=== PATIENT | female | born 1970 | race Caucasian/White ===

== ENCOUNTER 2024-07-15 06:44 | Observation (INO) | payer OTHER ==
[2024-07-14 11:21] VITALS: BMI 32.6
[2024-07-15] MEDS ORDERED: Bupivacaine HCl 0.5%/Epinephrine 1:200,000/PF 30 ml Vial ONE (07:04)
[2024-07-15] MEDS ORDERED: Methylene Blue 50 MG/10 ML AMPUL ONE (07:04)
[2024-07-15] MEDS ORDERED: Lidocaine 1% w/Epinephrine 1:200K 30 ML VIAL ONE (07:05)
[2024-07-15] MEDS ORDERED: Lidocaine 0.5%/Epinephrine 1:200,000 50 ml Vial ONE (07:05)
[2024-07-15] MEDS ORDERED: Dexamethasone 4 mg/ml Vial ONE (07:06)
[2024-07-15] MEDS ORDERED: Ondansetron PF 4 MG/2 ML Vial ONE (07:06)
[2024-07-15] MEDS ORDERED: Rocuronium Bromide 10 MG/ML (10ML VIAL) ONE (07:06)
[2024-07-15] MEDS ORDERED: Lidocaine 2% PF 5 ML VIAL ONE (07:07)
[2024-07-15] MEDS ORDERED: Lidocaine 4% PF 5 ML AMP ONE (07:07)
[2024-07-15] MEDS ORDERED: PROPOFOL 20 ML ONE (07:08)
[2024-07-15] MEDS ORDERED: fentaNYL 50 mcg/mL 1 mL Vial ONE ×4 (07:12→10:23)
[2024-07-15] MEDS ORDERED: Famotidine/PF 20 mg/2ml Vial ONE (07:16)
[2024-07-15] MEDS ORDERED: CeleCOXIB 100 MG CAP ONE (07:16)
[2024-07-15] MEDS ORDERED: Gabapentin 300 MG CAP ONE (07:16)
[2024-07-15] MEDS ORDERED: CEFAZOLIN 2 GM VIAL ONE (07:19)
[2024-07-15 07:49] LABS: #Basophils 0.06 10x3/uL (0.0-0.2); #Eosinphils 0.22 10x3/uL (0.0-0.5); #Monocytes 0.55 10x3/uL (0.0-1.1); #Neutrophils 4.24 10x3/uL (1.5-8.4); %Basophils 0.8 % (0.0-2.0); %Lymphocytes 30.7 % (18.0-47.0); %Monocytes 7.5 % (0.0-10.0); %Neutrophils 57.7 % (40.0-75.0); Hematocrit 36.5 % (34.9-44.5); Hemoglobin 12.2 g/dL (12.0-15.5); Mean Corpuscular HGB CONC 33.4 g/dL (32.0-36.0); Mean Corpuscular Hemoglobin 29.8 pg (27.0-33.0); Mean Corpuscular Volume 89.2 fL (81.6-98.3); Mean Platelet Volume 9.6 fL (7.4-10.4); Platelet Count 304 10x3/uL (150-450); RBC Distribution Width 13.7 % (11.5-14.5); Red Blood Cell (RBC) Count 4.09 10x6/uL (3.90-5.03); White Blood Cell (WBC) Count 7.4 10x3/uL (3.5-10.5)
[2024-07-15 07:55] LABS: BHCG - Serum Negative (NEGATIVE); Pregs Control Background? CLEAR/WHITE (CLR/WHITE); Pregs Control Bar Appear? YES (CONTROL BAR)
[2024-07-15] MEDS ORDERED: SUGAMMADEX SODIUM 200 MG/2 ML VIAL ONE (09:22)
[2024-07-15] MEDS ORDERED: Bisacodyl 10 MG SUPP PR PRN (10:33)
[2024-07-15] MEDS ORDERED: Ondansetron PF 4 MG/2 ML Vial IVP PRN (10:33)
[2024-07-15] MEDS ORDERED: Acetaminophen/Codeine 30-300mg Tablet PO PRN ×2 (10:33)
[2024-07-15] MEDS ORDERED: Simethicone Chewable 80 MG TAB PO PRN (10:33)
[2024-07-15] MEDS ORDERED: Promethazine HCl 25 MG/ML VIAL IM PRN (10:33)
[2024-07-15] MEDS ORDERED: diphenhydrAMINE 25 MG CAP PO PRN (10:33)
[2024-07-15] MEDS ORDERED: Acetaminophen 325 MG TAB PO PRN (10:33)
[2024-07-15] MEDS ORDERED: fentaNYL 50 mcg/mL 1 mL Vial SLOW IVP PRN (12:31)
[2024-07-15] MEDS: Lactated Ringer's 1,000 ML IV SCH (12:45)
[2024-07-15] MEDS: Ketorolac Tromethamine 30 MG (1 mL) VIAL IVP SCH (16:05)
[2024-07-15] MEDS ORDERED: Zolpidem Tartrate 5 MG TAB PO PRN (21:00)
[2024-07-16] MEDS: Ketorolac Tromethamine 30 MG (1 mL) VIAL IVP SCH (00:12)
[2024-07-16 04:45] LABS: Hematocrit 31.6 % (34.9-44.5); Mean Corpuscular HGB CONC 31.6 g/dL (32.0-36.0); Mean Corpuscular Hemoglobin 28.8 pg (27.0-33.0); Mean Corpuscular Volume 91.1 fL (81.6-98.3); Mean Platelet Volume 10.2 fL (7.4-10.4); Platelet Count 278 10x3/uL (150-450); RBC Distribution Width 13.9 % (11.5-14.5); Red Blood Cell (RBC) Count 3.47 10x6/uL (3.90-5.03); White Blood Cell (WBC) Count 11.6 10x3/uL (3.5-10.5)
[2024-07-16 14:12] VITALS: BP 128/72; TEMP 98.5
[2024-07-20] MEDS ORDERED: Ibuprofen 400 MG TAB PO SCH (14:00)
== END 2024-07-16 14:00 ==
LOC: CSHSDC 06:44 → CSHTELE 12:22 → EEVIPCON 12:22
PROVIDERS: ADMIT Student in an Organized Health Care Education/Training Program; ATTEND Student in an Organized Health Care Education/Training Program
PROC: 0UT94ZZ Resection of Uterus, Percutaneous Endoscopic Approach (ICD-10-PCS; principal; 2024-07-16)
PROC: 0UT74ZZ Resection of Bilateral Fallopian Tubes, Percutaneous Endoscopic Approach (ICD-10-PCS; 2024-07-16)
PROC: 0JQC3ZZ Repair Pelvic Region Subcutaneous Tissue and Fascia, Percutaneous Approach (ICD-10-PCS; 2024-07-16)
PROC: 0TSD0ZZ Reposition Urethra, Open Approach (ICD-10-PCS; 2024-07-16)
DX: N81.2 Incomplete uterovaginal prolapse (principal); N87.9 Dysplasia of cervix uteri, unspecified; N72 Inflammatory disease of cervix uteri; N39.3 Stress incontinence (female) (male); N76.0 Acute vaginitis; E03.9 Hypothyroidism, unspecified; G43.909 Migraine, unspecified, not intractable, without status migrainosus; F31.9 Bipolar disorder, unspecified; Z79.899 Other long term (current) drug therapy; Z87.891 Personal history of nicotine dependence; Z98.890 Other specified postprocedural states; Z88.8 Allergy status to other drugs, medicaments and biological substances; Z87.59 Personal history of other complications of pregnancy, childbirth and the puerperium
CPT/HCPCS: 36415; 84703; 85025; 85027; 86850; 86900; 86901; 88307; 93005; 93010; C1771; J1100; J1885; J2001; J2405; J2704; J3010; J3490; J7120; Q9968